=== PATIENT | male | born 1960 | race Caucasian/White ===

== ENCOUNTER 2020-03-08 09:33 | Emergency (ER) | payer OTHER ==
[2020-03-08 10:05] LABS: Absolute Lymphocytes (CBC) 0.7 K/uL (0.7-4.9); Basophils % 1.1 % (0-1.3); Hematocrit 35.7 % (39.6-49.0); Lymphocytes % 16.3 % (15.3-44.8); RBC Red Blood Cell Count 3.55 M/uL (4.33-5.43)
[2020-03-08] MEDS ORDERED: LORazepam 2 MG/ML VIAL ONE (10:07)
[2020-03-08 10:23] LABS: Urine Blood TRACE (NEG); Urine Glucose NEGATIVE (NEG); Urine Protein NEGATIVE (NEG)
--- NOTE | 2020-03-08 10:23 | RAD REPORT ---
EXAM DESCRIPTION: CT - Head Brain Wo Cont - 03/08/2020 10:13 am CLINICAL HISTORY: possible hallucinations, transient alteration of awareness COMPARISON: No comparisons TECHNIQUE: Axial 5 mm thick images of the head were obtained without IV contrast. All CT scans are performed using dose optimization technique as appropriate and may include automated exposure control or mA/KV adjustment according to patient size. FINDINGS: No intracranial hemorrhage, mass, edema or shift of mid-line structures. No acute infarcti on changes seen. No cortical edema or sulcal effacement. Mild to moderate atrophy changes are present patient age. Ventricles are in proportion to volume loss. Chronic ischemic changes mild for age. No epiphyseal and calcifications are present. Mastoid air cells and visualized portions of the paranasal sinuses are clear. No acute bony findings. IMPRESSION: Negative non-contrast CT head examination for acute finding.
[2020-03-08 10:27] LABS: Albumin 3.9 g/dL (3.4-5.0); Bilirubin Direct 0.8 mg/dL (0-0.2); Bilirubin Total 1.5 mg/dL (0.2-1.0); Protein, Total 8.1 g/dL (6.4-8.2)
[2020-03-08 10:28] LABS: Potassium 2.6 mmol/L (3.5-5.1)
[2020-03-08 10:29] LABS: Urine Bacteria <20 /HPF (NONE SEEN); Urine Culture Reflex Order NOT NEEDED; Urine RBC <5 /HPF (NONE SEEN)
[2020-03-08 10:34] LABS: Barbiturates NEGATIVE (NEGATIVE); Benzodiazepines NEGATIVE (NEGATIVE); Cocaine NEGATIVE (NEGATIVE); METHAMPHETAM NEGATIVE (NEGATIVE); Methadone NEGATIVE (NEGATIVE); Opiates NEGATIVE (NEGATIVE); Phencyclidine NEGATIVE (NEGATIVE); THC Cannibis NEGATIVE (NEGATIVE)
--- NOTE | 2020-03-08 10:51 | EDPHYS ---
Physician Documentation [facility] Name: Luisito Stewart Age: 60 yrs Sex: Male : 1960 Arrival Date: 03/08/2020 Time: 09:35 Bed 14 Private MD: ED Physician Fabien Mckinney HPI: 03/08 09:44 This 60 yrs old Male presents to ER via Unassigned with complaints of rn hallucinations. 09:44 The patient presents with hallucinations. Onset: The symptoms/episode began/occurred at rn an unknown time. Possible causes: unknown. Current symptoms: In the emergency department the patient's symptoms have improved. It is unknown whether or not the patient has had similar symptoms in the past. Per EMS, family called 911 because have noticed patient not making sense for a few weeks, report an episode of hallucinations that happened 2-3 weeks ago where he saw people in room that werent in room. Patient is daily drinker, has come out of [employer] and working again at [employer]. Denies head injury or focal neuro complaint. Last ETOH drink 2 days ago. Denies headache/chest pain/sob/abd pain/vomiting/diarrhea. No fever. Reports feels fine. Was agreeable to come here because family was concerned. No liver problems he knows of. . Historical: - Allergies: 09:49 No Known Allergies; iw - Home Meds: 09:49 zolpidem 10 mg Oral tab 1 tab once daily [Active]; unknown BP med [Active]; iw - PMHx: 09:49 Hypertension; iw - PSHx: 09:49 None; iw - Immunization history:: Adult Immunizations. - Family history:: not pertinent. - Hospitalizations: : No recent hospitalization is reported. ROS: 09:46 Constitutional: Negative for fever, chills, and weight loss, Eyes: Negative for injury, rn pain, redness, and discharge, ENT: Negative for injury, pain, and discharge, Neck: Negative for injury, pain, and swelling, Cardiovascular: Negative for chest pain, palpitations, and edema, Respiratory: Negative for shortness of breath, cough, wheezing, and pleuritic chest pain, Abdomen/GI: Negative for abdominal pain, nausea, vomiting, diarrhea, and constipation, MS/Extremity: Negative for injury and deformity, Skin: Negative for injury, rash, and discoloration, Neuro: Negative for headache, weakness, numbness, tingling, and seizure. Exam: 09:46 Constitutional: This is a well developed, well nourished patient who is awake, alert, rn and in no acute distress. Head/Face: Normocephalic, atraumatic. Eyes: Pupils equal round and reactive to light, extra-ocular motions intact. Lids and lashes normal. Conjunctiva and sclera are non-icteric and not injected. Cornea within normal limits. Periorbital areas with no swelling, redness, or edema. ENT: dry MM Cardiovascular: Tachycardic, regular, intact distal pulses Respiratory: No increased work of breathing, no retractions or nasal flaring. Abdomen/GI: soft, non-tender MS/ Extremity: Pulses equal, no cyanosis. Neurovascular intact. Full, normal range of motion. Equal circumference. Neuro: Awake and alert, GCS 15, oriented to person, place, time, and situation. Cranial nerves II-XII grossly intact. Motor strength 5/5 in all extremities. Sensory grossly intact. Cerebellar exam normal. Normal gait. + tongue fasciculations and extremity tremors. 11:49 ECG was reviewed by the Attending Physician. rn Vital Signs: 09:44 BP 157 / 84; Pulse 88; Resp 16; Temp 99.2(O); Pulse Ox 96% on R/A; iw 10:15 BP 110 / 72; Pulse 89; Resp 18; Pulse Ox 95% on R/A; kj1 11:15 BP 127 / 75; Pulse 79; Resp 18; Pulse Ox 97% on R/A; kj1 12:15 BP 128 / 76; Pulse 81; Resp 17; Pulse Ox 98% on R/A; Pain 0/10; rb1 MDM: 09:41 Patient medically screened. rn 10:47 Differential Diagnosis: CVA, electrolyte abnormality, alcohol intoxication, rn hypoglycemia, intracranial bleed, UTI, volume depletion, UTI, ETOH withdrawal. Data reviewed: vital signs, nurses notes, lab test result(s), and as a result, I will discharge patient. Counseling: I had a detailed discussion with the patient and/or guardian regarding: the historical points, exam findings, and any diagnostic results supporting the discharge/admit diagnosis, lab results, the need for outpatient follow up, to return to the emergency department if symptoms worsen or persist or if there are any questions or concerns that arise at home. Response to treatment: the patient's symptoms have markedly improved after treatment, and as a result, I will discharge patient. Special discussion: I discussed with the patient/guardian in detail that at this point there is no indication for admission to the hospital. It is understood, however, that if the symptoms persist or worsen the patient needs to return immediately for re-evaluation. Based on the history and exam findings, there is no indication for further emergent testing or inpatient evaluation. I discussed with the patient/guardian the need to see the primary care provider for further evaluation of the symptoms. ED course: Normalization of vitals after ativan, neg ct head and bloodowrk except for potassium, as expected for alcoholic. Had long discussion with patient regarding ETOH being his problem and mild ETOH withdrawal could explain changes in mental status from time to time. Will dc home with instructions for ETOH weaning and pcp f/u. . 03/08 09:42 Order name: CBC with Diff; Complete Time: 11:50 rn 03/08 09:42 Order name: Basic Metabolic Panel; Complete Time: 10:39 rn 03/08 09:42 Order name: LFT's; Complete Time: 10:39 rn 03/08 09:42 Order name: Alcohol Level; Complete Time: 10:28 rn 03/08 09:42 Order name: AMMONIA; Complete Time: 10:28 rn 03/08 09:42 Order name: Urine Microscopic Only; Complete Time: 10:49 rn 03/08 09:42 Order name: CT Head Brain wo Cont; Complete Time: 10:28 rn 03/08 09:42 Order name: Urine Drug Screen; Complete Time: 10:49 rn 03/08 10:09 Order name: Urine Dipstick--Ancillary (enter results); Complete Time: 10:28 eb 03/08 11:00 Order name: Diet Regular; Complete Time: 11:00 kj1 03/08 11:24 Order name: CBC Smear Scan; Complete Time: 11:50 EDMS 03/08 09:42 Order name: IV Start; Complete Time: 10:03 rn 03/08 09:42 Order name: Urine Dipstick-Ancillary (obtain specimen); Complete Time: 10:56 rn EC:49 Rate is 91 beats/min. Rhythm is regular. QRS Lyons is Normal. VT interval is normal. QRS rn interval is normal. QT interval is normal. No Q waves. No ST changes noted. Clinical impression: NSR w/ Non-specific ST/T Changes. Interpreted by me. Reviewed by me. Administered Medications: 10:05 Drug: Ativan 1 mg Route: IVP; Site: right antecubital; 11:30 Follow up: Response: No adverse reaction rb1 10:50 Drug: Potassium Chloride 20 mEq Route: IV; Rate: calculated rate; Site: right aa5 antecubital; 12:40 Follow up: Response: No adverse reaction; IV Status: Completed infusion rb1 10:55 Drug: NS 0.9% 500 ml Route: IV; Rate: 125 ml/hr; Site: right antecubital; aa5 Disposition: 03/08/20 10:50 Discharged to Home. Impression: Dehydration, Hypokalemia, Alcohol dependence with withdrawal, uncomplicated. - Condition is Stable. - Discharge Instructions: Dehydration, Adult, Alcohol Withdrawal, Vvev-gb-Fbor, Hypokalemia. - Medication Reconciliation Form, Thank You Letter, Antibiotic Education, Prescription Opioid Use form. - Follow up: Private Physician; When: As needed; Reason: Recheck today's complaints, Re-evaluation by your physician. - Problem is an ongoing problem. - Symptoms have improved. Signatures: Dispatcher [employer] EDMS Polly Brasher RN RN Fabien Mckinney MD MD rn Calderon, Audri, RN RN aa5 Maribel Byers RN RN rb1 Corrections: (The following items were deleted from the chart) 13:11 10:50 03/08/2020 10:50 Discharged to Home. Impression: Dehydration; Hypokalemia; rb1 Alcohol dependence with withdrawal, uncomplicated. Condition is Stable. Forms are Medication Reconciliation Form, Thank You Letter, Antibiotic Education, Prescription Opioid Use. Follow up: Private Physician; When: As needed; Reason: Recheck today's complaints, Re-evaluation by your physician. Problem is an ongoing problem. Symptoms have improved. rn
--- NOTE | 2020-03-08 10:51 | ER ---
Nurse's Notes [facility] Name: Luisito Stewart Age: 60 yrs Sex: Male : 1960 Arrival Date: 03/08/2020 Time: 09:35 Bed 14 Private MD: Diagnosis: Dehydration;Hypokalemia;Alcohol dependence with withdrawal, uncomplicated Presentation: 03/08 09:44 Chief complaint: EMS states: were called out to home by pt daughter, stated that pt has iw been seeing things that aren't there, ot saw housekeepers that weren't there, pt states that there really were housekeepers in the house. Pt denies any medical complaints, reports hx of ETOH use daily, approx 3 beers per day, last drank 2 days ago. Coronavirus screen: Proceed with normal triage. Patient denies a cough. Patient denies shortness of breath or difficulty breathing. Patient denies measured and/or subjective temperature greater than 100.4F prior to today's visit. Patient denies travel on a cruise ship or to a country the [facility] currently lists as an affected area. Patient denies contact with known and/or suspected case of COVID-19. Ebola Screen: Patient negative for fever greater than or equal to 101.5 degrees Fahrenheit, and additional compatible Ebola Virus Disease symptoms Patient denies exposure to infectious person. Patient denies travel to an Ebola-affected area in the 21 days before illness onset. No symptoms or risks identified at this time. Initial Sepsis Screen: Does the patient meet any 2 criteria? No. Patient's initial sepsis screen is negative. Does the patient have a suspected source of infection? No. Patient's initial sepsis screen is negative. Risk Assessment: Do you want to hurt yourself or someone else? Patient reports no desire to harm self or others. Onset of symptoms was March 08, 2020. 09:44 Method Of Arrival: EMS: [facility] iw 09:44 Acuity: ABI 3 iw Historical: - Allergies: 09:49 No Known Allergies; iw - Home Meds: 09:49 zolpidem 10 mg Oral tab 1 tab once daily [Active]; unknown BP med [Active]; iw - PMHx: 09:49 Hypertension; iw - PSHx: 09:49 None; iw - Immunization history:: Adult Immunizations. - Family history:: not pertinent. - Hospitalizations: : No recent hospitalization is reported. Screenin:30 Abuse screen: Denies threats or abuse. Nutritional screening: No deficits noted. rb1 Tuberculosis screening: No symptoms or risk factors identified. Fall Risk None identified. Assessment: 09:45 General: Appears in no apparent distress. Behavior is calm, cooperative. General: iw Denies fever, feeling ill, fatigue, chills. Pain: Denies pain. Neuro: Level of Consciousness is awake, alert, obeys commands, Oriented to person, place, time, situation, Rv Technician are equal bilaterally Moves all extremities. Full function Speech is normal, Denies weakness blurred vision dizziness. Cardiovascular: Denies chest pain, shortness of breath, Capillary refill < 3 seconds in bilateral fingers Patient's skin is warm and dry. Respiratory: Respiratory effort is even, unlabored, Respiratory pattern is regular, symmetrical. GI: Patient currently denies abdominal pain, diarrhea, nausea, vomiting. : Denies burning with urination, urinary frequency, urgency. Derm: Skin is intact. Musculoskeletal: Range of motion: intact in all extremities. 11:30 General: Appears in no apparent distress. Behavior is calm, cooperative. Pain: Denies rb1 pain. Neuro: Level of Consciousness is awake, alert, obeys commands, Oriented to person, place, time, situation. Cardiovascular: Capillary refill < 3 seconds. Respiratory: Airway is patent Respiratory effort is even, unlabored, Respiratory pattern is regular, symmetrical. Derm: Skin is pink, warm \T\ dry. 12:30 Reassessment: Patient appears in no apparent distress at this time. No changes from rb1 previously documented assessment. Discharge pending due to Potassium infusing. Vital Signs: 09:44 BP 157 / 84; Pulse 88; Resp 16; Temp 99.2(O); Pulse Ox 96% on R/A; iw 10:15 BP 110 / 72; Pulse 89; Resp 18; Pulse Ox 95% on R/A; kj1 11:15 BP 127 / 75; Pulse 79; Resp 18; Pulse Ox 97% on R/A; kj1 12:15 BP 128 / 76; Pulse 81; Resp 17; Pulse Ox 98% on R/A; Pain 0/10; rb1 ED Course: 09:35 Patient arrived in ED. aa5 09:41 Fabien Mckinney MD is Attending Physician. rn 09:44 Polly Brasher, RN is Primary Nurse. iw 09:48 Triage completed. iw 09:52 EKG done, by ED staff, reviewed by Fabien Mckinney MD. Initial lab(s) drawn, by me, sent to kj1 lab. Inserted saline lock: 22 gauge in left antecubital area, using aseptic technique. Blood collected. 10:02 Urine collected: clean catch specimen, clear, Amount Voided: 80mL. kj1 10:13 CT Head Brain wo Cont In Process Unspecified. EDMS 10:14 CT completed. Patient tolerated procedure well. Patient moved back from CT. bq 11:30 Patient has correct armband on for positive identification. Bed in low position. Call rb1 light in reach. Side rails up X 1. Pulse ox on. NIBP on. Warm blanket given. 11:30 Arm band placed on right wrist. rb1 13:00 No provider procedures requiring assistance completed. IV discontinued, intact, rb1 bleeding controlled, No redness/swelling at site. Pressure dressing applied. 13:11 Maribel Byers, RN is Primary Nurse. rb1 Administered Medications: 10:05 Drug: Ativan 1 mg Route: IVP; Site: right antecubital; iw 11:30 Follow up: Response: No adverse reaction rb1 10:50 Drug: Potassium Chloride 20 mEq Route: IV; Rate: calculated rate; Site: right aa5 antecubital; 12:40 Follow up: Response: No adverse reaction; IV Status: Completed infusion rb1 10:55 Drug: NS 0.9% 500 ml Route: IV; Rate: 125 ml/hr; Site: right antecubital; aa5 Outcome: 10:50 Discharge ordered by . rn 13:00 Discharged to home via wheelchair, with family. rb1 13:00 Condition: stable 13:00 Discharge instructions given to patient, Instructed on discharge instructions, follow up and referral plans. Demonstrated understanding of instructions, follow-up care, Prescriptions given X none 13:11 Patient left the ED. rb1 Signatures: Dispatcher [employer] EDMS Jenelle Foster Polly Brasher, RN ASTER iw Fabien Mckinney MD MD rn Calderon, Audri, RN RN aa5 Maribel Byers RN RN rb1 Monique Rueda kj
[2020-03-08] MEDS ORDERED: NA CHLORIDE 0.9% 500 ML ONE (10:55)
[2020-03-08] MEDS ORDERED: KCL 20 MEQ/100 mL IVPB 20 MEQ/100 ML BAG IV ONE (10:55)
[2020-03-08 11:24] LABS: Blood Morphology Comment NOT SEEN (NOT SEEN); Platelet Estimate DECR; Urine White Blood Cell Casts OK
[2020-03-08 13:18] VITALS: TEMP 99.2
[2020-03-08 13:20] VITALS: BP 127/75; O2SAT 97
--- NOTE | 2020-03-09 16:26 | EKG ---
Test Date: 2020-03-08 Test Time: 09:39:38 Geospatial Analyst: OMAR MEASUREMENT RESULTS: Intervals: Rate: 91 VT: 172 QRSD: 88 QT: 384 QTc: 472 Vian: P: 63 VT: 172 QRS: -3 T: 28 INTERPRETIVE STATEMENTS: Undetermined rhythm Nonspecific ST abnormality Abnormal ECG No previous ECG available for comparison Electronically Signed On 03-09-20 16:23:03 CDT by Brayden Garcia
== END 2020-03-08 13:11 | disposition home or self-care (01) ==
LOC: ER 09:33
DX: F10.239 Alcohol dependence with withdrawal, unspecified (principal); E87.6 Hypokalemia; I10 Essential (primary) hypertension
CPT/HCPCS: 93005; 85025; 80048; 36415; 80320; 82140; 80076; 80307 ×8; 70450; J7040; 81003; 81015; 96365; 96366; 96375; 99285